=== PATIENT | male | born 1990 | race Hispanic/Latino ===

== ENCOUNTER 2023-06-03 18:41 | Emergency (ER) | payer OTHER ==
[2023-06-03] VITALS (8 sets, daily range): BP systolic 144–173; BP diastolic 69–101
[~2023-06-03] VITALS: Ht 172.7 cm; Wt 95.0 kg
[2023-06-03 19:37] LABS: BASO% 0.3 % (0-3); EOS% 0.6 % (0-8); HEMATOCRIT 42.4 % (39.0-50.0); HEMOGLOBIN 14.7 g/dl (14.0-18.0); IMMATURE GRANULOCYTES 0.4 % (0.0-5.0); LYMPH% 19.7 % (15-41); MEAN CELL VOLUME 87.2 fL CALC (80.0-100.0); MEAN CORPUSCULAR HGB 30.2 pG CALC (26.0-32.0); MEAN CORPUSCULAR HGB CONC 34.7 g/dL CAL (32.0-36.0); MONO% 8.7 % (2-13); NEUT# 7.66 thou/uL (1.82-7.42); NEUT% 70.3 % (42-76); RED BLOOD COUNT 4.86 mill/uL (4.70-6.10); RED CELL DISTRI WIDTH 12.6 % (11.5-15.5)
[2023-06-03 19:43] LABS: ALBUMIN 4.5 g/dL (3.2-5.0); ALKALINE PHOSPHATASE 85 u/l (38-126); ANION GAP 16 (6-22 (CALC)); BILIRUBIN, TOTAL 1.2 mg/dL (0.2-1.3); BUN 8 mg/dL (9-20); BUN/CREATININE RATIO 10 (12-20 (CALC)); CARBON DIOXIDE 18 mmol/l (22-30); CHLORIDE 103 mmol/l (95-108); CREATININE 0.8 mg/dL (0.7-1.3); GFR FOR AFR.AMER. > 60 ML/MIN (>=60 (CALC)); GFR OTHER RACES > 60 ML/MIN (>=60 (CALC)); LIPASE 105 u/l (23-300); POTASSIUM 3.8 mmol/l (3.5-5.1); SGOT/AST 82 u/l (17-59); SODIUM 133 mmol/l (137-146); TOTAL PROTEIN 8.2 g/dL (6.3-8.2)
[2023-06-03] MEDS ORDERED: methylPREDNISolone SODIUM SUCC 125 MG/2 ML SDV IV ONE (19:45)
[2023-06-03] MEDS ORDERED: IPRATROPIUM-Albuterol 0.5MG-2.5MG/3 ML NEB ONE (19:45)
[2023-06-03] MEDS ORDERED: ZITHROMAX500 MG PO (22:08)
[2023-06-03] MEDS ORDERED: VENTOLIN HFA108 MCG IH (22:13)
[2023-06-04] MEDS ORDERED: VENTOLIN HFA108 MCG IH (18:43)
[2023-06-04] MEDS ORDERED: ZITHROMAX500 MG PO (18:43)
[2023-06-05] MEDS ORDERED: ZITHROMAX500 MG PO (07:40)
[2023-06-05] MEDS ORDERED: VENTOLIN HFA108 MCG IH (07:40)
== END 2023-06-03 22:24 | disposition home or self-care (01) ==
LOC: ED 18:41
PROVIDERS: Nurse Practitioner
DX: J45.909 Unspecified asthma, uncomplicated (principal); F17.290 Nicotine dependence, other tobacco product, uncomplicated